=== PATIENT | male | born 1980 | race Two or more races ===

== ENCOUNTER 2021-03-29 03:34 | Emergency (ER) | payer MEDICAID, OTHER ==
[~2021-03-29] VITALS: Ht 177.8 cm; Wt 74.8 kg
[2021-03-29 03:39] VITALS: BP 128/73
== END 2021-03-29 09:34 | disposition left against medical advice (07) ==
LOC: EDBD 03:34 → ER 03:34
DX: F20.9 Schizophrenia, unspecified (principal); F17.210 Nicotine dependence, cigarettes, uncomplicated

== ENCOUNTER 2021-04-21 22:59 | Emergency (ER) | payer MEDICAID ==
[~2021-04-21] VITALS: Ht 170.2 cm; Wt 74.8 kg
[2021-04-22 06:26] VITALS: BP 136/82
== END 2021-04-22 02:59 | disposition left against medical advice (07) ==
LOC: EDBD 22:59 → ER 23:02
DX: M79.10 Myalgia, unspecified site (principal); Z53.21 Procedure and treatment not carried out due to patient leaving prior to being seen by health care provider